=== PATIENT | female | born 2000 | race Caucasian/White ===

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

== ENCOUNTER 2022-08-29 11:26 | Emergency (ER) | payer BC, SELFPAY ==
[2022-08-29 11:30] VITALS: BP 135/76; PULSE 82; RESP 14; TEMP 36.8; O2SAT 100
--- NOTE | 2022-08-29 11:48 | ED.GENADULT ---
HPI - General Adult General Chief complaint: Ear Stated complaint: Right ear Source: patient Mode of arrival: ambulatory Limitations: no limitations History of Present Illness HPI narrative: Patient presents for evaluation of right-sided ear pain since yesterday. She has associated hearing loss. She also reports a cough for the past 2 weeks in a mild sore throat. Her boyfriend recently had a cough as well. No fever, chills, nausea, vomiting, diarrhea. She does use electronic cigarette. Denies any drainage from her ear. She was recently on cephalexin for impetigo. Related Data Allergies Allergy/AdvReac Type Severity Reaction Status Date / Time No Known Allergies Allergy Verified 08/29/22 11:47 Review of Systems Review of Systems: CONSTITUTIONAL: Denies fever, chills, or sweats. EYES: Denies visual changes, redness, or discharge. ENT: Reports right-sided ear pain with associated hearing loss. Denies drainage from the ear. Reports sore throat. CARDIOVASCULAR: Denies chest pain, palpitations, or edema. RESPIRATORY: Reports cough. Denies shortness of breath. GASTROINTESTINAL: Denies abdominal pain, nausea, vomiting, or diarrhea. GENITOURINARY: Denies dysuria or hematuria. SKIN: Denies rash or itching. MUSCULOSKELETAL: Denies back pain, joint pain, or myalgia. NEUROLOGIC: Denies headache, numbness, dizziness, or weakness. PSYCHIATRIC: Denies anxiety or depression. [facility] Past Medical History Medical History No pertinent past medical history Surgical History Surgical History No pertinent past surgical history Family History Family History Mother Family history non-contributory Social History Social History Smoking status: Current every day smoker Tobacco type: e-cigarettes/vaping Substance use: never Gender identity (if verbalized by the patient): Female Sexual Orientation (if Verbalized by the Patient): Straight or Heterosexual Spiritual care concerns: No Exam Narrative: GENERAL: Well-appearing, well-nourished, and in no acute distress. HEAD: Normocephalic, atraumatic. EYES: PERRLA and EOMI. ENT: Nares clear, no rhinorrhea or epistaxis. Mucous membranes moist. Oropharynx without tonsillar hypertrophy exudate or other lesions. Right tympanic membrane erythema with small perforation present. Right ear canal erythematous NECK: Supple. No adenopathy or masses. No carotid bruits or JVD CHEST: Clear to auscultation. No respiratory distress. No wheezes rales or rhonchi HEART: Regular rate and rhythm. No murmur heard. Normal peripheral pulses. ABDOMEN: Soft, nontender, nondistended, normal active bowel sounds. EXTREMITIES: Normal range of motion. No edema. SKIN: Warm, dry, no rash. NEURO: No focal deficits. Alert and oriented x3. PSYCH: Normal mood and affect. Course Course Emergency Course: This is a 21-year-old female who presented for evaluation of right-sided ear pain. She has evidence of otitis media with perforation of the tympanic membrane. Will treat with Augmentin and ofloxacin. Increase hydration. Rcur-dit-ddzetlh agents for symptom management. Follow up with primary provider. Go to the ER for worsening symptoms. Patient in agreement with plan of care per Level of Care: Express Care Visit Vital Signs Vital signs: Vital Signs Temperature 36.8 C 08/29/22 11:30 Pulse Rate 82 08/29/22 11:30 Respiratory Rate 14 08/29/22 11:30 Blood Pressure 135/76 08/29/22 11:30 Pulse Oximetry 100 08/29/22 11:30 Oxygen Delivery Room Air 08/29/22 11:30 Temperature 36.8 C 08/29/22 11:30 Pulse Rate 82 08/29/22 11:30 Respiratory Rate 14 08/29/22 11:30 Blood Pressure 135/76 08/29/22 11:30 Pulse Oximetry 100 08/29/22 11:30 Ox
== END 2022-08-29 11:51 | disposition home or self-care (01) ==
PROVIDERS: Emergency Provider Nurse Practitioner; PCP Pediatrics Pediatric Emergency Medicine
DX: H66.91 Otitis media, unspecified, right ear (principal); H72.91 Unspecified perforation of tympanic membrane, right ear; F17.290 Nicotine dependence, other tobacco product, uncomplicated
CPT/HCPCS: 99213; G0463